=== PATIENT | female | born 1985 | race Caucasian/White ===

== ENCOUNTER 2016-12-04 18:22 | Emergency (ER) | payer OTHER ==
[2016-12-04 18:43] VITALS: BP 112/69
--- NOTE | 2016-12-04 19:55 | UC ---
Skin Complaint HPI - HPI Summary HPI Summary: itchy vesicular rash on legs, waxing and waning skin fading on chest and arms - History of Current Complaint Hx Obtained From: Patient Hx Last Menstrual Period: 11/15/16 ?: No Onset/Duration: Gradual Onset, Lasting Weeks, Still Present Timing: Constant Onset Severity: Moderate Current Severity: Moderate Pain Intensity: 6 - 0 on chest and arms Pain Scale Used: 0-10 Numeric Location: Diffuse Character: Redness, Raised Aggravating: Nothing Alleviating: Nothing Associated Signs & Symptoms: Positive: Negative Related History: Possible Reaction to: Environmental Exposure <Hermelinda Perez - Last Filed: 12/08/16 06:57> <Deisi Bentley - Last Filed: 12/08/16 07:54> - History of Current Complaint Chief Complaint: UCSkin Time Seen by Provider: 12/04/16 19:45 Stated Complaint: RASH - Allergy/Home Medications Allergies/Adverse Reactions: Allergies Allergy/AdvReac Type Severity Reaction Status Date / Time No Known Allergies Allergy Verified 12/04/16 18:40 Review of Systems Constitutional: Negative Skin: Rash - on chest and arm---blothy verigations in color, legs red vesicular Eyes: Negative ENT: Negative Respiratory: Negative Cardiovascular: Negative Gastrointestinal: Negative Genitourinary: Negative Motor: Negative Neurovascular: Negative Musculoskeletal: Negative Neurological: Negative Psychological: Negative All Other Systems Reviewed And Are Negative: Yes <Hermelinda Perez - Last Filed: 12/08/16 06:57> PMH/Surg Hx/FS Hx/Imm Hx Previously Healthy: Yes - Surgical History Surgical History: Yes Surgery Procedure, Year, and Place: wisdom teeth - Family History Family History: no reported cardiovascular issues in family lineage - Social History Occupation: Employed Full-time Lives: With Family Alcohol Use: Occasionally Substance Use Type: None Smoking Status (MU): Never Smoked Tobacco <Hermelinda Perez - Last Filed: 12/08/16 06:57> Physical Exam Triage Information Reviewed: Yes Appearance: Well-Appearing, No Pain Distress, Well-Nourished Vital Signs: Initial Vital Signs Temp 98 F 12/04/16 18:41 Pulse 64 12/04/16 18:41 Resp 15 12/04/16 18:41 BP 112/69 12/04/16 18:41 Pulse Ox 100 12/04/16 18:41 Vital Signs Reviewed: Yes Eye Exam: Normal Eyes: Positive: Conjunctiva Clear ENT Exam: Normal ENT: Positive: Normal ENT inspection, Hearing grossly normal. Negative: Nasal congestion, Nasal drainage, Trismus, Muffled/hoarse voice Dental Exam: Normal Neck exam: Normal Neck: Positive: Supple, Nontender, No Lymphadenopathy Respiratory Exam: Normal Respiratory: Positive: Chest non-tender, No respiratory distress, No accessory muscle use Cardiovascular Exam: Normal Cardiovascular: Positive: RRR, Pulses Normal, Brisk Capillary Refill Musculoskeletal Exam: Normal Musculoskeletal: Positive: Strength Intact, ROM Intact, No Edema Neurological Exam: Normal Neurological: Positive: Alert, Muscle Tone Normal Psychological Exam: Normal Psychological: Positive: Normal Response To Family, Age Appropriate Behavior Skin Exam: Other Skin: Positive: rashes - as described <Hermelinda Perez - Last Filed: 12/08/16 06:57> Vital Signs: Initial Vital Signs Temp 98 F 12/04/16 18:41 Pulse 64 12/04/16 18:41 Resp 15 12/04/16 18:41 BP 112/69 12/04/16 18:41 Pulse Ox 100 12/04/16 18:41 <Deisi Bentley - Last Filed: 12/08/16 07:54> Course/Dx - Course Course Of Treatment: prednisone for contact rash on lower legs, selinum lotion for tinea on chest and arms - Differential Diagnoses - Skin Complaint Differential Diagnoses: Contact Dermatitis, Local Allergic Reaction, Scabies, Tinea, Varicella Zoster - Diagnoses Provider Diagnoses: Contact dermitis both legs, tinea versicolor chest and arms <Hermelinda Perez - Last Filed: 12/08/16 06:57> Discharge <Hermelinda Perez - Last Filed: 12/08/16 06:57> <Deisi Bentley - Last Filed: 12/08/16 07:54> - Discharge Plan Condition: Stable Disposition: HOME Prescriptions: Selenium Sulfide-Pyrithione Zi [Selenium Sulfide] 1 sha EX DAILY #120 ml predniSONE TAB* [Deltasone TAB*] 10 mg PO DAILY #52 tab Patient Education Materials: Contact Dermatitis (ED), Poison Lou (ED), Tinea Versicolor (ED) Referrals: [facility] – [place] PHYSICIAN REFERRAL [Outside] - 2 Weeks Attestation Statement User Type: Provider - I was available for consult. This patient was seen by the PABLO. The patient was not presented to, seen by, or examined by me. -Lelo <Deisi Bentley - Last Filed: 12/08/16 07:54>
== END 2016-12-04 20:13 | disposition home or self-care (01) ==
LOC: UCEAST 18:22
DX: L25.9 Unspecified contact dermatitis, unspecified cause (principal); B36.0 Pityriasis versicolor
CPT/HCPCS: 99212; G0463

== ENCOUNTER 2019-06-06 20:11 | Inpatient (IN) | payer OTHER, BC ==
--- NOTE | 2019-06-06 20:58 | HP ---
General Information - Reason for Visit IUP at 42-2/7 in labor - General Information Maternal Age: 33 Grav: 1 Para: 0 SAB: 0 IEA: 0 Estimated Due Date: 05/21/19 Determined By: LMP Maternal Blood Type and Rh: O Positive - Results this Serology/RPR Result: Non-Reactive Rubella Result: Immune HBsAg Result: Negative HIV Result: Negative GBS Culture Result: Negative Past Medical History Delivery History: See Records Delivery History Comment: Primip Pertinent Past Medical History: Non-Contributory Pertinent Past Surgical History: See Records Past Surgical History Comment: 2005 [place] tooth extraction Pertinent Family History: See Records Family History Comment: Mother: Hypertension, Bronchiectasis Sister: Gallstones PGM: DMT2, Dementia, Breast cancer PGF: Stroke x 3, Heart disease, Parkinson's disease MGM: Breast cancer - diagnosed post menopause MGF: , heart disease Maternal Aunt: Thyroid disease, Cancer - Antepartal Records Antepartal Records: Reviewed, Complicated by: - Genital warts in , tx'd with TCA. Varicella non-immune, plan to offer vaccine PP. Post- dates at 42+ weeks had previously declined induction Review of Systems Constitutional: Uncomfortable - with UCs CV Complaint: No Respiratory: Shortness of Breath: No Gastrointestinal: No Nausea/Vomiting, Normal Bowel Movement Genitourinary: No Dysuria, No Leaking Fluid, Spotting Musculoskeletal: No Complaint, No Epigastric Pain Neurological: No Headache, No Visual Changes Movement: Normal Exam Allergies/Adverse Reactions: Allergies No Known Allergies Allergy (Verified 06/06/19 20:28) BP 132/88 HR 80 T 98.9 RR 20 SpO2 99% on RA - Measurements Height: 5 ft 4 in Weight: 184 lb Weight in lbs: 184.929689 Body Mass Index (BMI): 31.6 Pre- Weight: 139 lb Weight Gained This : 45 lbs and 0 ozs - Exam Breast: Breast Exam Deferred CVA: No CVA Tenderness Extremities: Edema - 1+ pitting edema in feet and ankles bilaterally Heart: Normal Rhythm/Heart Sounds HEENT: No Significant Findings Lungs: Clear Bilaterally Rectal: Rectal Exam Deferred Reflexes: DTR 2+ Thyroid: No Thyromegaly - Abdominal Exam Abdomen Exam: Non-Tender - Ultrasound/Biophysical Profile Ultrasound Findings: HOLLI done at [facility] at 1330 today: 13.9, Vtx presentation confirmed Targeted Exam Findings See L&D Outpatient Visit Provider Note for Findings: N/A Estimated Weight: EFW 8.5lbs by Emma Cervical Exam: 3cm, 4cm Effacement: 70% Station: -2 Presenting Part: Vertex Membrane Status: Intact Sterile Speculum Exam: Not done Bleeding/Discharge: Bloody Show EFM Findings - External Monitor Findings Baseline Heart Rate: 140 External Monitor Findings: Accelerations Present, No Pattern of Variable or Late Decelerations, Variability Moderate, Baseline Stable External Monitor Findings Comment: No evidence of metabolic acidemia Contractions: Regular, Mild, Moderate, 45-90 Seconds Contraction Frequency: q 2-3 min Assessment/Plan - Assessment IUP at 42-2/7 in early active labor No evidence of metabolic acidemia - Obstetrical Risk Factors Obstetrical Risk Factors: Post-Dates - Plan Plan: Admit - Anticipate Vaginal Delivery Plan Comment: Pt presents with FOB and Melania carmen, for bedside support. Hoping for an unmedicated labor with minimal intervention. Interested in hydrotherapy for pain management as well as frequent position changes and other suggestions. Has ball at bedside. Encourage psychoprophylaxis and support for unmedicated labor. Admit to L&D. Anticipate progression into active labor. - Date/Time of Admission Date of Admission: 06/06/19 Time of Admission: 20:47
--- NOTE | 2019-06-06 22:14 | PN ---
Progress Note - Progress Note Date of Service: 06/06/19 Note: S: Paged to bedside at 7560 by RN to assess bloody vaginal discharge. When pt stood at side of bed experienced a "gush" of what she thought was amniotic fluid but appeared to be bright red blood O: VSS, afebrile FHT 140bpm. Moderate variability. +Accels. No decels UCs q 2-3 firm VE 4cm/70%/vtx -2, no membranes felt, impression: spontaneous rupture of membranes to bloody fluid A: IUP at 42-2/7 in labor No evidence of metabolic acidemia Blood tinged amniotic fluid of unknown significance P: Continuous EFM. Recommend against use of the tub in labor. Pt and FOB agree. Will monitor closely and continue a pad count. Dr. Bell aware of pt presence and condition. Agrees with plan. Will remain in house
[2019-06-06 22:57] LABS: ABS Basophils 0.1 10^3/ul (0-0.2); ABS Eosinophils 0.1 10^3/ul (0-0.6); ABS Lymphocytes 1.3 10^3/ul (1.0-4.8); ABS Monocytes 0.7 10^3/ul (0-0.8); ABS Neutrophils 11.8 10^3/ul (1.5-7.7); Eosinophil % 0.8 %; Hematocrit 32 % (35-47); Hemoglobin 10.9 g/dL (12.0-16.0); Lymphocyte % 9.3 %; Mean Corpuscular HGB Conc 34 g/dL (31-36); Mean Corpuscular Hemoglobin 28 pg (27-31); Mean Corpuscular Volume 82 fL (80-97); Platelet Count 193 10^3/uL (150-450); Red Blood Count 3.88 10^6 /uL (3.70-4.87); Red Cell Distribution Width 14 % (10-15)
[2019-06-06] MEDS ORDERED: Lactated Ringers 1000 ML Bag* 1,000 ML IV ONE (23:00)
[2019-06-06 23:02] LABS: Platelet Count 204 10^3/ul (150-450)
[2019-06-06 23:09] LABS: Activated Partial Thrombo Time 24.9 seconds (26.0-38.0); Fibrinogen 388.2 mg/dL (110.8-404.3)
[2019-06-06 23:45] LABS: Schistocytes ABSENT
--- NOTE | 2019-06-06 23:54 | PN ---
Progress Note - Progress Note Date of Service: 06/06/19 Note: S: Pt breathing through UCs. Standing at bedside rocking with . Peat Shredder Tender continues to provide continuous bedside support. Pt reports that it feels like UCs are right on top of each other but coping. IV fluid bolus complete. Labs stable (CBC, DIC screen-results in chart) O: VSS, afebrile FHT: 130bpm. Moderate variability. +Accels. Rare variable decel with UCs. None in the last 20 min UCs q 1-3 VE: 5cm/80%/vtx -1, pad dry at this time. RN tracking closely A: IUP at 42-2/7 in active labor No evidence of metabolic acidemia Vaginal bleeding of unknown significance P: Continue close monitoring of maternal/ status.
--- NOTE | 2019-06-07 01:54 | PN ---
Progress Note - Progress Note Date of Service: 06/07/19 Note: S: Pt requesting VE. Reports increased rectal pressure, very intense. Feeling a little defeated like "nothing is working" to help with her discomfort. Has tried position changes, standing in the shower. Strong ongoing bedside support from and contact center professional. O: BP 127/80 HR 94 T 98.5 FHT 130bpm. Moderate variability. +Accels. No decels UCs q 1-4 VE 5-6/100%/vtx -1, gissell blood on glove with exam Since 2309 on 06/06/2019 blood loss estimate 100g by weighing pads A: IUP at 42-3/7 weeks in early active labor No evidence of metabolic acidemia P: Close monitoring of maternal/ status. Given pt's stated preference for minimal intervention will wait to have a conversation about pain relief options until it is initiated by her.
[2019-06-07 03:45] LABS: Urine Benzodiazepine Screen None Detected (None Detect); Urine Opiates Screen None Detected (None Detect)
[2019-06-07] MEDS ORDERED: OBEPIDURAL* 250 ML EPIDURAL ONE (04:34)
--- NOTE | 2019-06-07 04:56 | PN ---
Progress Note - Progress Note Date of Service: 06/07/19 Note: S: Paged to pt bedside at 0400 to discuss coping in labor, increased intensity of physical sensations, labor progress and options going forward. Pt reports feeling "exhausted" as she's been nehal "for the last 26 hours". O: BP 139/89 HR 99 RR 20 FHT: 135bpm. Moderate variability. +Accels. Isolated decel at 0354, rapid recovery. None noted since UCs q 1-3 min, coupling pattern noted VE 5-6cm/100%/vtx -1, +caput (unchanged). Scant blood on glove after exam Since 0145 blood loss estimate 70g (total 170g since arrival) A: IUP at 42-3/7 in labor No evidence of metabolic acidemia P: Lengthy discussion of labor progress including potential interventions to improve maternal coping in labor/allow rest such as pain relief strategies including nitrous oxide, IV pain medication (fentanyl) and epidural analgesia. Reviewed pros/cons, risks/benefits and expectations for degree of relief. All questions answered. Pt requests labor epidural at this time as she reports desire for sleep. Anesthesia paged for consult. Once pt is comfortable will evaluate strength of contractions and consider further intervention PRN. Pt and FOB agree. Anesthesia at bedside to further discuss.
[2019-06-07] MEDS ORDERED: Sodium Citrate/Citric Acid* 15 ML UDC PO PRN (06:23)
[2019-06-07] MEDS ORDERED: Lactated Ringers 1000 ML Bag* 1,000 ML IV ONE (06:23)
[2019-06-07] MEDS ORDERED: Famotidine TAB* 20 MG PO PRN (06:23)
--- NOTE | 2019-06-07 07:36 | PN ---
Progress Note - Progress Note Date of Service: 06/07/19 Note: S: Pt sleeping s/p CEI placement. Very happy with decision to utilize pain relief. Can feel some mild pressure but no strong UCs at this time. O: BP 125/52 HR 109 FHT 140bpm. Moderate variability. +Accels. No decels at this time UCs q 2-5 min VE 7cm/100%/vtx -1, +Caput. +Blood on glove with exam Total blood loss by weight since admission 190g A: IUP at 42-3/7 in labor No evidence of metabolic acidemia Vaginal bleeding, stable P: Encouraged rest. Continue close monitoring of maternal/ status. Report to Ovidio Rowan CNM who will assume care at 0800
[2019-06-07] MEDS: Lactated Ringers 1000 ML Bag* 1,000 ML IV SCH ×3 (08:00→13:50)
--- NOTE | 2019-06-07 09:58 | PN ---
Progress Note - Progress Note Date of Service: 06/07/19 SOAP: Subjective: Pt comfortable with epidural, happy with decision to get it. Slept for a couple hours. at bedside, supportive. Objective: FHR: [id number], moderate variability, no accels, early decels UCs: 2-3 minutes Fluid clear, 5cc measured blood since start of shift Temp: 98.6, BP: 129/86 Cervical exam deferred. Assessment: 33 year old at 42 3/7 weeks gestation in active labor, membranes ruptured about 12 hours. Minimal bleeding at this time. No evidence of acidemia or chorioamnionitis. Plan: Will recheck cervix in 2 hours or with urge to push. Reviewed pt hx, FHR tracing , prior episodes of bleeding with Dr. Esteban. Anticipate continued progression to full dilation and .
--- NOTE | 2019-06-07 11:55 | PN ---
Progress Note - Progress Note Date of Service: 06/07/19 SOAP: Subjective: Pt reports feeling ctx more. Used epidural bolus button. Reasonably comfortable. Objective: Cervix: 7cm/ 100%/ 0 station UCs: 2-4 minutes FHR: Baseline 150/ moderate variability/ + accels/ no decels Temp: 98.8 Assessment: Minimal cervical change for 4 hours. No evidence of acidemia or chorioamnionitis. Suspect asynclitic position. Plan: Discussed options with pt including Pitocin augmentation. Pt with preference to avoid. Ctx pattern is good at this time, and there is some concern about possible partial abruption due to bleeding earlier, so prefer to avoid Pitocin if possible. Will attempt position changes to promote improved positioning. Will do 30 minutes of throne position, followed by side-lying release, then return to throne position. Will reevaluate cervix in 2 hours or as needed, if no change at that time will recommend IUPC, Pitocin.
[2019-06-07] MEDS ORDERED: Acetaminophen TAB* 325 MG PO ONE ×2 (13:09→21:20)
--- NOTE | 2019-06-07 13:18 | PN ---
Progress Note - Progress Note Date of Service: 06/07/19 SOAP: Subjective: Pt still feeling some pressure with ctx. Objective: Temp: 100.6, 101 on repeat FHR: Baseline 150/ moderate variability/ no accels/ no decels UCs: 2-4 minutes small amount blood, small clot noted on pad Assessment: Pt with two elevated temps 30 minutes apart, no tachycardia, chorioamnionitis vs epidural induced temperature elevation. No evidence of acidemia. Plan: Consulted with Dr. Esteban. Will start pt on ampicillin and gentamicin, and give acetaminophen. If no cervical change on next exam, will consider Pitocin augmentation. IUPC contraindicated due to suspected partial abruption.
[2019-06-07] MEDS: Ampicillin ADVAN(*) 2 GM in NS 0.9% 100 ML* 100 ML IVPB SCH ×2 (13:51→20:02)
[2019-06-07] MEDS ORDERED: NS 0.9% IVPB ONE (14:00)
[2019-06-07] MEDS ORDERED: GENTAMICIN ADULT IVPB ONE (14:00)
--- NOTE | 2019-06-07 14:55 | PN ---
Progress Note - Progress Note Date of Service: 06/07/19 SOAP: Subjective: Pt with some pain with ctx, worse on right side than left. Coping. and shade cloth finisher at bedside. Objective: Cervix: 8cm/ 100%/ 0 station FHR: Baseline 140/ moderate variability/ no accels/ no decels UCs:4-5 minutes Temp: 100.8 Minimal bloody show Assessment: Pt with some cervical change since last exam. It feels as though positioning has improved. Temp still elevated, antibiotics running. Plan: Continue abx therapy as ordered. Recheck cervix in 2 hours or as needed. If no or minimal change, recommend Pitocin augmentation.
--- NOTE | 2019-06-07 18:02 | PN ---
Progress Note - Progress Note Date of Service: 06/07/19 SOAP: Subjective: Pt feeling some pressure with ctx, using epidural bolus button. Pt did Walcher' s position through 3 ctx. Objective: Cervix was unchanged at last exam FHR: Baseline 150/ moderate variability/ no decels at the moment but had two decels with prolonged ctx during and following Walcher's position UCs: 3-4 minutes Temp:100.6 Assessment: Pt being treated for probable chorioamnionitis. Possible partial abruption, but no significant bleeding today. Currently no evidence of acidemia. Plan: Recheck cervix soon. Consider starting Pitocin for augmentation. Dr. Esteban aware of FHR tracing, labor progress.
[2019-06-07] MEDS ORDERED: Oxytocin in LR* 20 UNITS/1,000 ML BAG IVPB SCH (19:00)
[2019-06-07] MEDS ORDERED: Ropivacaine (OR use only) 2 MG/ML 10 ML ONE (19:17)
--- NOTE | 2019-06-07 20:03 | PN ---
Progress Note - Progress Note Date of Service: 06/07/19 Note: Pt comfortable and resting following epidural bolus. Last exam 9cm/ 0 station/ 100%. Pt declined Pitocin augmentation. FHR: Baseline 150/ moderate variability / isolated decel. Will recheck in 1 hour or as needed.
[2019-06-07] MEDS ORDERED: Acetaminophen TAB* 325 MG ONE (21:24)
--- NOTE | 2019-06-07 21:39 | PN ---
Progress Note - Progress Note Date of Service: 06/07/19 SOAP: Subjective: Pt with pressure with contractions. Fatigued but wishes to continue to labor. Objective: T: 101.3 FHR: Baseline 150/ moderate variability/ + accels/ no decels UCs: 3-5 minutes Cervical exam: unchanged from previous (9cm/ 100%/ 0 station/ molding and mild caput) BP: 139/90 Assessment: Pt with possible arrest of dilation. Pt with continued fever despite ampicillin and gentamicin. FHR not currently reflective of acidemia. Plan: Pt counseled that at this time would be an option if she chose that. Alternately recommend Pitocin augmentation, which she has declined previously. Pt agrees to Pitocin augmentation. Will also do bolus of D5LR to provide glucose for uterine muscle. Consulted with Dr. reese regarding pt's continued fever despite abx. He recommends repeating Tylenol dosing. Will recheck pt in 1-2 hours or as needed.
[2019-06-07] MEDS ORDERED: D5LR 1000 ML BAG* 1,000 ML IV SCH (22:00)
--- NOTE | 2019-06-08 01:34 | PN ---
Progress Note - Progress Note Date of Service: 06/08/19 Note: Called for tachycardia and arrest disorder by Olga stern cnm . Pt has been pushing for approximately 1 hr with continued anterior lip of cervix present. Fhr in 160's - 170"s with moderate variability. Pt has been started on ampi/gent for maternal fever and suspected chorioamnionitis . On exam still some cervix present . vertex at -1 station with some molding. d/w pt and partner compensation in light of infection and lack of progress and concern for further compromise in light of little evidence for descent.discussed section risks/ benefits/ alternative and indications / questions answered.
[2019-06-08] MEDS ORDERED: Lidocaine 2% w/ EPI 1:200,000* 20 ML SDV VIAL ONE (01:43)
[2019-06-08] MEDS ORDERED: Morphine PF AMP (0.5MG/ML)* 5 MG/10 ML AMP ONE (01:43)
[2019-06-08] MEDS ORDERED: OXYTOCIN* 10 UNITS/ML 1 ML VIAL ONE (01:43)
[2019-06-08] MEDS ORDERED: ceFOXitin 2 GM IVPREMIX* 2 GM/50 ML BAG ONE (01:47)
[2019-06-08] MEDS ORDERED: fentaNYL* 50 MCG/ML 2 ML VIAL (100 MCG VIAL) ONE (02:07)
[2019-06-08] MEDS ORDERED: Ketorolac INJ* 30 MG/ML 1 ML VIAL ONE (02:45)
[2019-06-08] MEDS ORDERED: Witch Hazel PAD* JAR TOPICAL PRN (03:10)
[2019-06-08] MEDS ORDERED: Zolpidem TAB* 5 MG PO PRN (03:10)
[2019-06-08] MEDS ORDERED: Glycerin ADULT SUPP PR PRN (03:10)
[2019-06-08] MEDS ORDERED: Dibucaine 1% 28.35 GM TUBE PR PRN (03:10)
[2019-06-08] MEDS ORDERED: Ibuprofen TAB* 600 MG PO PRN (03:10)
[2019-06-08] MEDS ORDERED: oxyCODONE/Acetamin 5/325 MG* TAB PO PRN ×2 (03:10)
[2019-06-08] MEDS ORDERED: Naloxone* 0.4 MG/ML 1 ML VIAL IV PRN (03:30)
[2019-06-08] MEDS ORDERED: Nalbuphine* 10 MG/ML 1 ML VIAL IV PRN (03:30)
[2019-06-08] MEDS ORDERED: Lactated Ringers 1000 ML Bag* 1,000 ML IV SCH (04:00)
[2019-06-08] MEDS ORDERED: Oxytocin in LR* 20 UNITS/1,000 ML BAG IVPB SCH (04:00)
[2019-06-08] MEDS: OBEPIDURAL* 250 ML EPIDURAL SCH (05:07)
[2019-06-08] MEDS: Acetaminophen TAB* 325 MG PO SCH ×3 (05:14→20:58)
--- NOTE | 2019-06-08 05:40 | OP ---
AMENDED REPORT NOW INCLUDES DATE OF OPERATION DATE OF OPERATION: 06/08/19 - ROOM #118 DATE OF : 89. SURGEON: Balbir Esteban MD LINING FOLDER: Deisi Quiroga CNM. ANESTHESIA: Epidural. PRE-OP DIAGNOSIS: Arrest of descent, tachycardia. POST-OP DIAGNOSIS: Arrest of descent, tachycardia. OPERATIVE PROCEDURE: Low-transverse section. ESTIMATED BLOOD LOSS: 600 cc. SPECIMEN: Includes placenta. FINDINGS: Include a viable male, Apgars 8 and 8. There was a small fibroid on the posterior uterus. Normal tubes and ovaries. Weight was 8 pounds 13 ounces , 4004 g. DESCRIPTION OF PROCEDURE: The patient was identified and the procedure identified as a low-transverse section. The patient was taken to the operating room, prepped and draped in usual fashion in the left lateral recumbent position under epidural anesthesia. Pfannenstiel incision was made in the abdomen and carried down through fat, fascia, and peritoneum. Transverse incision was made in the lower uterine segment and extended laterally using the blunt dissection. The above was delivered through the incision with ease. The cord was doubly clamped and cut, and the was handed to the awaiting lab intern. Cord blood was obtained. Placenta delivered manually. The uterus was wiped out with a wet lap sponge. The uterine incision was then closed using 0 Polysorb in a running fashion. A second layer was used to imbricate the first layer. Good hemostasis achieved with 0 Polysorb [id number] sutures. Good hemostasis was achieved intraperitoneally. The peritoneum was then closed using 3-0 Vicryl in a running fashion. Good hemostasis achieved in the subrectus layers. The fascia was closed using 0 Polysorb in a running fashion. Good hemostasis was achieved in the subcu. Copious irrigation was utilized and suctioned out. The skin was closed with 4-0 Monocryl in a subcuticular fashion. There was a small skin tag on the left margin that the patient and I discussed briefly, and she asked that to be excised and that was done. It had been there for several years and it was not sent for studies. All sponge and instrument counts were correct. Steri- Strips and Mastisol were applied, and the patient returned to recovery room in stable condition. All sponge and instrument counts were correct. [id number]/[facility] #: [id number] ALBERT
[2019-06-08] MEDS: Docusate CAP* 100 MG PO SCH ×3 (08:58→20:58)
[2019-06-08] MEDS: Simethicone TAB* 80 MG TAB.CHEW PO SCH ×4 (08:59→20:58)
[2019-06-08] MEDS: Ibuprofen TAB* 600 MG PO SCH ×2 (08:59→16:59)
[2019-06-08] MEDS ORDERED: Varicella Virus Vaccine Live* 0.5 ML VIAL SUBCUT ONE (09:00)
[2019-06-08] MEDS ORDERED: LR @ 40 MLS/HR IV ONE (11:00)
--- NOTE | 2019-06-08 17:07 | PTEDU ---
Patient Name: LALI FLORES LALI FLORES selected video: Follow Me Mum: [employer] [facility] Successful to view on 06/08 at 5:06:21 PM from [id number]
[2019-06-09] MEDS: Ibuprofen TAB* 600 MG PO SCH ×3 (00:43→17:08)
[2019-06-09 05:29] LABS: ABS Eosinophils 0.2 10^3/ul (0-0.6); ABS Lymphocytes 1.3 10^3/ul (1.0-4.8); ABS Monocytes 0.7 10^3/ul (0-0.8); ABS Neutrophils 9.1 10^3/ul (1.5-7.7); Eosinophil % 1.8 %; Hematocrit 23 % (35-47); Hemoglobin 7.9 g/dL (12.0-16.0); Lymphocyte % 11.2 %; Mean Corpuscular HGB Conc 34 g/dL (31-36); Mean Corpuscular Hemoglobin 28 pg (27-31); Mean Corpuscular Volume 84 fL (80-97); Mean Platelet Volume 9.1 fL (7.4-10.4); Platelet Count 136 10^3/uL (150-450); Red Cell Distribution Width 14 % (10-15); White Blood Count 11.3 10^3/uL (3.5-10.8)
[2019-06-09] MEDS: Acetaminophen TAB* 325 MG PO SCH ×2 (07:06→15:35)
[2019-06-09] MEDS: Simethicone TAB* 80 MG TAB.CHEW PO SCH ×3 (09:06→18:22)
[2019-06-09] MEDS: Ferrous Gluconate TAB* 324 MG TAB PO SCH ×2 (09:06→20:47)
[2019-06-09] MEDS: Docusate CAP* 100 MG PO SCH ×3 (09:07→20:47)
[2019-06-10] MEDS: Ibuprofen TAB* 600 MG PO SCH ×4 (00:07→18:12)
[2019-06-10] MEDS: Acetaminophen TAB* 325 MG PO SCH (03:08)
[2019-06-10] MEDS: Ferrous Gluconate TAB* 324 MG TAB PO SCH ×2 (08:07→20:36)
[2019-06-10] MEDS: Docusate CAP* 100 MG PO SCH ×3 (08:07→20:37)
[2019-06-10] MEDS: Simethicone TAB* 80 MG TAB.CHEW PO SCH ×6 (08:08→20:37)
[2019-06-10] MEDS: Acetaminophen TAB* 325 MG PO PRN ×3 (09:14→20:37)
[2019-06-11] MEDS: Ibuprofen TAB* 600 MG PO SCH ×2 (00:42→08:58)
[2019-06-11] MEDS: Acetaminophen TAB* 325 MG PO PRN ×2 (02:54→09:43)
[2019-06-11] MEDS: Simethicone TAB* 80 MG TAB.CHEW PO SCH ×2 (07:25→08:58)
[2019-06-11] MEDS: OBEPIDURAL* 250 ML EPIDURAL SCH (07:26)
[2019-06-11] MEDS: Ampicillin ADVAN(*) 2 GM in NS 0.9% 100 ML* 100 ML IVPB SCH (07:27)
[2019-06-11] MEDS: Docusate CAP* 100 MG PO SCH (08:58)
[2019-06-11] MEDS: Ferrous Gluconate TAB* 324 MG TAB PO SCH (08:58)
[2019-06-11 09:48] VITALS: BP 130/75
[2019-06-11 10:22] LABS: ABS Eosinophils 0.3 10^3/ul (0-0.6); ABS Lymphocytes 1.1 10^3/ul (1.0-4.8); ABS Monocytes 0.4 10^3/ul (0-0.8); ABS Neutrophils 6.7 10^3/ul (1.5-7.7); Eosinophil % 3.1 %; Hematocrit 25 % (35-47); Hemoglobin 8.6 g/dL (12.0-16.0); Lymphocyte % 13.3 %; Mean Corpuscular HGB Conc 35 g/dL (31-36); Mean Corpuscular Hemoglobin 29 pg (27-31); Mean Corpuscular Volume 82 fL (80-97); Platelet Count 211 10^3/uL (150-450); Red Blood Count 2.98 10^6 /uL (3.70-4.87); Red Cell Distribution Width 14 % (10-15); White Blood Count 8.6 10^3/uL (3.5-10.8)
== END 2019-06-11 14:00 | disposition home or self-care (01) | DRG 786 ==
LOC: MCHOBOUT 20:11 → MCHOB 20:47
PROVIDERS: ADMIT Midwife; ATTEND Obstetrics & Gynecology
PROC: 4A1HXCZ Monitoring of Products of Conception, Cardiac Rate, External Approach (ICD-10-PCS; 2019-06-08)
PROC: 10D00Z1 Extraction of Products of Conception, Low, Open Approach (ICD-10-PCS; principal; 2019-06-08 01:55)
DX: O48.1 Prolonged pregnancy (principal); O41.1230 Chorioamnionitis, third trimester, not applicable or unspecified; Z37.0 Single live birth; O76 Abnormality in fetal heart rate and rhythm complicating labor and delivery; O62.1 Secondary uterine inertia; O34.13 Maternal care for benign tumor of corpus uteri, third trimester; D25.9 Leiomyoma of uterus, unspecified; L91.8 Other hypertrophic disorders of the skin; O75.81 Maternal exhaustion complicating labor and delivery; O90.81 Anemia of the puerperium; Z3A.42 42 weeks gestation of pregnancy
CPT/HCPCS: 36415; 80307; 85025; 85049; 85362; 85384; 85610; 85730; 86850; 86900; 86901; 87070; 87205; 88307; A9270-GY; J0694; J1580; J1885; J2590; J2795; J3010